=== PATIENT | female | born 1980 | race Two or more races ===

== ENCOUNTER 2016-10-22 09:59 | Emergency (ER) | payer SELFPAY ==
[~2016-10-22] VITALS: Ht 152.4 cm; Wt 81.6 kg
[~2016-10-22 09:59] MED LIST: METR500T PO; NITR100C62 PO
[2016-10-22 10:13] VITALS: BP 137/74
[2016-10-22] MEDS ORDERED: TRIA15OI TP (10:45)
[2016-10-22] MEDS ORDERED: PRED50TA PO (10:45)
[2016-10-22] MEDS ORDERED: DIPH25CA58 PO (10:45)
[2016-10-22] MEDS ORDERED: FAMO-63 PO (10:45)
--- NOTE | 2016-10-22 10:45 | PHYS DOC ---
Past Medical History Past Medical History: No Pertinent History Past Surgical History: No Surgical History Alcohol Use: None Drug Use: None Adult General Chief Complaint Chief Complaint: SKIN PROBLEM HPI HPI Patient is a 36 year old female with no significant medical history who presents with a pruritic rash for one week. Patient denies any new soaps or laundry detergents. She states she has tried [id number] hydrocortisone with no relief. Review of Systems Review of Systems Constitutional: Denies fever or chills [] Eyes: Denies change in visual acuity, redness, or eye pain [] Musculoskeletal: Denies back pain or joint pain [] Integument: rash Neurologic: Denies headache, focal weakness or sensory changes [] Endocrine: Denies polyuria or polydipsia [] Allergies Allergies Allergies Coded Allergies Type Severity Reaction Last Updated Verified No Known Drug Allergies 02/11/14 No Physical Exam Physical Exam Constitutional: Well developed, well nourished, no acute distress, non-toxic appearance. [] HENT: Normocephalic, atraumatic, bilateral external ears normal, oropharynx moist, no oral exudates, nose normal. [] Skin: Mild amount of erythema is macular rash on bilateral lower extremities, small amount of the same rash on the abdomen. Back: No tenderness, no CVA tenderness. [] Extremities: No tenderness, no cyanosis, no clubbing, ROM intact, no edema. [] Neurologic: Alert and oriented X 3, normal motor function, normal sensory function, no focal deficits noted. [] Psychologic: Affect normal, judgement normal, mood normal. [] Current Patient Data Vital Signs Vital Signs Date Time Temp Pulse Resp B/P (MAP) Pulse Ox O2 Delivery O2 Flow Rate FiO2 10/22/16 10:13 98.3 62 18 100 Room Air 98.3 EKG EKG [] Radiology/Procedures Radiology/Procedures [] Course & Med Decision Making Course & Med Decision Making Pertinent Labs and Imaging studies reviewed. (See chart for details) Patient has contact dermatitis rash from unknown cause. Discharged with triamcinolone cream, prednisone, Benadryl and Pepcid. Follow-up with PCP or director of coding provided in 2 weeks. Dragon Disclaimer Dragon Disclaimer This electronic medical record was generated, in whole or in part, using a voice recognition dictation system. Departure Departure Impression: Primary Impression: Contact dermatitis Disposition: HOME, SELF-CARE Condition: STABLE Referrals: KWESI RUIZ MD (PCP) DAYAMI TABOR MD Follow-up in 2 weeks Patient Instructions: Contact Dermatitis Additional Instructions: You were seen for contact dermatitis rash due to unknown cause. Use the prescribed medicines as ordered. Follow-up with the provided director of coding in 2 weeks if symptoms continue. Scripts Famotidine (PEPCID) 20 Mg Tablet 20 MG PO DAILY, #5 TAB Prov: KAM PEREZ APRN 10/22/16 Prednisone (PREDNISONE) 50 Mg Tablet 1 TAB PO DAILY, #5 TAB Prov: KAM PEREZ APRN 10/22/16 Diphenhydramine Hcl (BENADRYL) 25 Mg Capsule 1 CAP PO Q4HRS W/A, #30 CAP 1 Refill Prov: KAM PEREZ APRN 10/22/16 Triamcinolone Acetonide (TRIAMCINOLONE ACETONIDE 0.1% OINT) 15 Gm Oint...g. 1 BROOKE TP BID for WOUND CARE, #1 TUBE MIX WITH EUCERIN DIRECTED BY PHYSICIAN Prov: KAM PEREZ APRN 10/22/16 Problem Qualifiers Primary Impression: Contact dermatitis Contact dermatitis type: unspecified Contact dermatitis trigger: unspecified trigger Qualified Codes: L25.9 - Unspecified contact dermatitis, unspecified cause KAM PEREZ APRN Oct 22, 2016 10:45
== END 2016-10-22 10:59 | disposition home or self-care (01) ==
LOC: ER 09:59
DX: L25.9 Unspecified contact dermatitis, unspecified cause (principal)
CPT/HCPCS: 99283